=== PATIENT | female | born 1935 | race Caucasian/White ===

== ENCOUNTER 2022-02-22 07:27 | Outpatient (CLI) | payer MEDICARE, BC ==
[2022-02-22 08:04] LABS: Estimated GFR-MDRD - POC Greater than 90
[2022-02-22] MEDS ORDERED: Iopamidol-370 76% 500 ML 1 ML ONE (09:40)
== END 2022-02-22 07:28 | disposition home or self-care (01) ==
LOC: BICCT 07:27
PROVIDERS: ATTEND Physician Assistant Medical
DX: R63.4 Abnormal weight loss (principal); R19.4 Change in bowel habit; K76.89 Other specified diseases of liver; K57.30 Diverticulosis of large intestine without perforation or abscess without bleeding
CPT/HCPCS: 74177; 82565; Q9967

== ENCOUNTER 2022-05-01 13:29 | Outpatient (CLI) | payer MEDICARE, BC | END 2022-05-01 13:30 | disposition home or self-care (01) | LOC: BICCT 13:29 | PROVIDERS: ATTEND Psychiatry & Neurology Neurology | DX: R41.3 Other amnesia (principal); R93.0 Abnormal findings on diagnostic imaging of skull and head, not elsewhere classified | CPT/HCPCS: 70450 ==

== ENCOUNTER 2022-06-13 07:19 | Outpatient (CLI) | payer MEDICARE, BC | END 2022-06-13 07:20 | disposition home or self-care (01) | LOC: NM 07:19 | PROVIDERS: ATTEND Internal Medicine Rheumatology | DX: E21.3 Hyperparathyroidism, unspecified (principal) | CPT/HCPCS: 78072; A9500 ==

== ENCOUNTER 2025-04-16 16:18 | Emergency (ER) | payer MEDICARE, BC ==
[2025-04-16 19:11] LABS: #Basophils 0.06 10x3/uL (0.0-0.2); #Eosinophils 0.09 10x3/uL (0.0-0.7); #Monocytes 0.73 10x3/uL (0.11-0.59); #Neutrophils 4.64 10x3/uL (1.40-6.50); %Basophils 0.8 % (0.0-1.0); %Eosinophils 1.2 % (0.0-10.0); %Lymphocytes 28.1 % (21.0-51.0); %Monocytes 9.5 % (0.0-10.0); %Neutrophils 60.1 % (42.0-75.0); Hematocrit 37.8 % (36.0-47.0); Hemoglobin 13.2 g/dL (12.0-16.0); Mean Corpuscular Hemoglobin 33.2 pg (27.0-31.0); Mean Corpuscular Volume 95.0 fL (78.0-98.0); Platelet Count 195 10x3/uL (130-400); Red Blood Cell (RBC) Count 3.98 mill/uL (4.20-5.40); White Blood Cell (WBC) Count 7.71 10x3/uL (4.8-10.8)
[2025-04-16 19:36] LABS: Troponin I Less than 0.010 ng/mL (< 0.028)
[2025-04-16 19:51] LABS: ALT (SGPT) 12 U/L (Less than 34); AST (SGOT) 25 U/L (11-34); Albumin 4.0 g/dL (3.1-4.5); Alkaline Phosphatase 35 U/L (40-110); Anion Gap 17 mmol/L (10-20); BUN (Urea Nitrogen) 13 mg/dL (9.8-20.1); Bilirubin, Total 0.9 mg/dL (0.3-1.2); Calc. Creatinine Clearance 0 mL/min (70-130); Calcium 9.5 mg/dL (7.8-10.44); Carbon Dioxide 23 mmol/L (23-31); Chloride 101 mmol/L (98-107); Globulin 2.6 g/dL (2.4-3.5); Glucose 93 mg/dL (83-110); Potassium 3.9 mmol/L (3.5-5.1); Sodium 137 mmol/L (136-145)
[2025-04-16 20:11] LABS: CAUTI Indications for Culture Alt mental st,lethar; Glucose, Urine (Dipstick) Normal (Negative); Leukocyte Negative Leu/uL (Negative); Protein, Urine (Dipstick) Negative (Neg-Trace); RBC/HPF 0-3 HPF (0-3); Specific Gravity, Urine 1.007 (1.002-1.036); WBC/HPF 0-3 HPF (0-3)
[2025-04-16 20:17] LABS: Bacteria/HPF 1+ HPF (None Seen); Urine Culture Reflex No No
== END 2025-04-16 21:07 | disposition home or self-care (01) ==
LOC: ERS 16:18
DX: I10 Essential (primary) hypertension (principal); R51.9 Headache, unspecified; I48.91 Unspecified atrial fibrillation; Z55.6 Problems related to health literacy
CPT/HCPCS: 70450; 80053; 81001; 84484; 85025; 93005

== ENCOUNTER 2025-06-04 08:09 | Outpatient (CLI) | payer MEDICARE, BC | END 2025-06-04 08:10 | disposition home or self-care (01) | LOC: ULT 08:09 | PROVIDERS: ATTEND Nurse Practitioner Family | DX: I10 Essential (primary) hypertension (principal) | CPT/HCPCS: 76770; 93976 ==

== ENCOUNTER 2025-09-06 12:22 | Inpatient (IN) | payer MEDICARE, BC ==
[2025-09-06 13:43] LABS: #Basophils 0.08 10x3/uL (0.0-0.2); #Eosinophils 0.17 10x3/uL (0.0-0.7); #Monocytes 0.58 10x3/uL (0.11-0.59); #Neutrophils 3.80 10x3/uL (1.40-6.50); %Basophils 1.5 % (0.0-1.0); %Eosinophils 3.2 % (0.0-10.0); %Lymphocytes 12.4 % (21.0-51.0); %Monocytes 10.9 % (0.0-10.0); %Neutrophils 71.4 % (42.0-75.0); Hematocrit 31.2 % (36.0-47.0); Hemoglobin 10.4 g/dL (12.0-16.0); Mean Corpuscular Hemoglobin 31.7 pg (27.0-31.0); Mean Corpuscular Volume 95.1 fL (78.0-98.0); Platelet Count 290 10x3/uL (130-400); Red Blood Cell (RBC) Count 3.28 mill/uL (4.20-5.40); White Blood Cell (WBC) Count 5.32 10x3/uL (4.8-10.8)
[2025-09-06 14:04] LABS: ALT (SGPT) 20 U/L (Less than 34); AST (SGOT) 24 U/L (11-34); Albumin 2.9 g/dL (3.1-4.5); Alkaline Phosphatase 42 U/L (40-110); Anion Gap 15 mmol/L (10-20); BUN (Urea Nitrogen) 7 mg/dL (9.8-20.1); Bilirubin, Total 0.7 mg/dL (0.3-1.2); Calc. Creatinine Clearance 0 mL/min (70-130); Calcium 8.5 mg/dL (7.8-10.44); Carbon Dioxide 25 mmol/L (23-31); Chloride 94 mmol/L (98-107); Globulin 2.2 g/dL (2.4-3.5); Glucose 99 mg/dL (83-110); Potassium 3.9 mmol/L (3.5-5.1); Sodium 130 mmol/L (136-145)
[2025-09-06] MEDS ORDERED: Furosemide 40 MG (4 mL) VIAL ONE (14:49)
[2025-09-06] MEDS ORDERED: Ondansetron PF 4 MG/2 ML Vial IVP PRN (15:27)
[2025-09-06] MEDS ORDERED: Electrolyte Replacement Protocol 1 EACH FS SCH (15:30)
[2025-09-06] MEDS ORDERED: Magnesium Sulfate In Water 4 GM in Premix 1 BAG IVPB PRN (15:45)
[2025-09-06] MEDS ORDERED: Potassium Chloride 20 MEQ in Premix 1 BAG IVPB PRN (15:45)
[2025-09-06] MEDS ORDERED: PHOS-NAK 1 PKT PACK PO PRN (15:45)
[2025-09-06 16:35] LABS: Bacteria/HPF None Seen HPF (None Seen); CAUTI Indications for Culture Dysuria,urgency,freq; Glucose, Urine (Dipstick) Normal (Negative); Leukocyte Negative Leu/uL (Negative); Protein, Urine (Dipstick) Negative (Neg-Trace); RBC/HPF 0-3 HPF (0-3); Specific Gravity, Urine 1.004 (1.002-1.036); WBC/HPF None Seen HPF (0-3)
[2025-09-06 16:39] LABS: Urine Culture Reflex No No
[2025-09-06 17:29] VITALS: BMI 23.0
[2025-09-06] MEDS: Carvedilol 6.25 MG TAB PO SCH (17:44)
[2025-09-06] MEDS: Furosemide 40 MG (4 mL) VIAL SLOW IVP SCH (17:44)
[2025-09-06] MEDS: Lisinopril 20 MG TAB PO SCH (21:08)
[2025-09-06] MEDS: Melatonin 3 MG TAB PO PRN (21:08)
[2025-09-07 04:31] LABS: #Basophils 0.10 10x3/uL (0.0-0.2); #Eosinophils 0.29 10x3/uL (0.0-0.7); #Monocytes 0.92 10x3/uL (0.11-0.59); #Neutrophils 3.30 10x3/uL (1.40-6.50); %Basophils 1.8 % (0.0-1.0); %Eosinophils 5.4 % (0.0-10.0); %Lymphocytes 14.8 % (21.0-51.0); %Monocytes 17.0 % (0.0-10.0); %Neutrophils 60.8 % (42.0-75.0); Hematocrit 29.4 % (36.0-47.0); Hemoglobin 9.9 g/dL (12.0-16.0); Mean Corpuscular Hemoglobin 31.9 pg (27.0-31.0); Mean Corpuscular Volume 94.8 fL (78.0-98.0); Platelet Count 290 10x3/uL (130-400); Red Blood Cell (RBC) Count 3.10 mill/uL (4.20-5.40); White Blood Cell (WBC) Count 5.42 10x3/uL (4.8-10.8)
[2025-09-07 04:52] LABS: Iron 58 ug/dL (50-170); Iron Binding Capacity, Total 179 mcg/dL (265-497)
[2025-09-07 04:53] LABS: ALT (SGPT) 17 U/L (Less than 34); AST (SGOT) 30 U/L (11-34); Albumin 2.6 g/dL (3.1-4.5); Alkaline Phosphatase 37 U/L (40-110); Anion Gap 9 mmol/L (10-20); BUN (Urea Nitrogen) 8 mg/dL (9.8-20.1); Bilirubin, Total 0.6 mg/dL (0.3-1.2); Calc. Creatinine Clearance 54 mL/min (70-130); Calcium 8.1 mg/dL (7.8-10.44); Carbon Dioxide 29 mmol/L (23-31); Chloride 96 mmol/L (98-107); Globulin 2.4 g/dL (2.4-3.5); Glucose 87 mg/dL (83-110); Iron 58 ug/dL (50-170); Iron Binding Capacity, Total 204 mcg/dL (265-497); Magnesium 1.7 mg/dL (1.6-2.6); Potassium 3.0 mmol/L (3.5-5.1); Sodium 131 mmol/L (136-145)
[2025-09-07 05:03] LABS: Ferritin 129.54 ng/mL (10-291)
[2025-09-07] MEDS: Furosemide 40 MG (4 mL) VIAL SLOW IVP SCH (06:07)
[2025-09-07] MEDS: Pantoprazole 40 MG DR.TAB PO SCH (09:43)
[2025-09-07 14:49] LABS: Potassium 4.1 mmol/L (3.5-5.1)
[2025-09-08 04:00] LABS: #Basophils 0.14 10x3/uL (0.0-0.2); #Eosinophils 0.29 10x3/uL (0.0-0.7); #Monocytes 0.91 10x3/uL (0.11-0.59); #Neutrophils 4.64 10x3/uL (1.40-6.50); %Basophils 2.1 % (0.0-1.0); %Eosinophils 4.3 % (0.0-10.0); %Lymphocytes 10.2 % (21.0-51.0); %Monocytes 13.6 % (0.0-10.0); %Neutrophils 69.5 % (42.0-75.0); Hematocrit 31.8 % (36.0-47.0); Hemoglobin 10.7 g/dL (12.0-16.0); Mean Corpuscular Hemoglobin 31.8 pg (27.0-31.0); Mean Corpuscular Volume 94.4 fL (78.0-98.0); Platelet Count 315 10x3/uL (130-400); Red Blood Cell (RBC) Count 3.37 mill/uL (4.20-5.40); White Blood Cell (WBC) Count 6.68 10x3/uL (4.8-10.8)
[2025-09-08 04:11] LABS: Anion Gap 12 mmol/L (10-20); BUN (Urea Nitrogen) 12 mg/dL (9.8-20.1); Calc. Creatinine Clearance 42 mL/min (70-130); Calcium 8.3 mg/dL (7.8-10.44); Carbon Dioxide 28 mmol/L (23-31); Chloride 97 mmol/L (98-107); Glucose 114 mg/dL (83-110); Magnesium 1.8 mg/dL (1.6-2.6); Potassium 3.4 mmol/L (3.5-5.1); Sodium 134 mmol/L (136-145)
[2025-09-08 04:34] LABS: Free T4 (Free Thyroxine) 1.27 ng/dL (0.70-1.48)
[2025-09-08] MEDS: FLU (Fluad Triv) 25-26 (65UP)PF 45 MCG/0.5 ML Syringe IM ONE (09:16)
[2025-09-08] MEDS: PNEUMOC 20-VAL CONJ-DIP CRM/PF 0.5 ML SYRINGE IM ONE (09:17)
[2025-09-08] MEDS: Senokot S 8.6-50 MG TAB PO PRN (14:51)
[2025-09-08 16:05] LABS: Potassium 3.5 mmol/L (3.5-5.1)
[2025-09-08] MEDS: Melatonin 3 MG TAB PO SCH (20:23)
[2025-09-09 04:02] LABS: #Basophils 0.14 10x3/uL (0.0-0.2); #Eosinophils 0.43 10x3/uL (0.0-0.7); #Monocytes 1.02 10x3/uL (0.11-0.59); #Neutrophils 5.12 10x3/uL (1.40-6.50); %Basophils 1.8 % (0.0-1.0); %Eosinophils 5.6 % (0.0-10.0); %Lymphocytes 12.2 % (21.0-51.0); %Monocytes 13.3 % (0.0-10.0); %Neutrophils 66.7 % (42.0-75.0); Hematocrit 31.2 % (36.0-47.0); Hemoglobin 10.4 g/dL (12.0-16.0); Mean Corpuscular Hemoglobin 31.9 pg (27.0-31.0); Mean Corpuscular Volume 95.7 fL (78.0-98.0); Platelet Count 301 10x3/uL (130-400); Red Blood Cell (RBC) Count 3.26 mill/uL (4.20-5.40); White Blood Cell (WBC) Count 7.68 10x3/uL (4.8-10.8)
[2025-09-09 04:12] LABS: Anion Gap 11 mmol/L (10-20); BUN (Urea Nitrogen) 12 mg/dL (9.8-20.1); Calc. Creatinine Clearance 48 mL/min (70-130); Calcium 8.5 mg/dL (7.8-10.44); Carbon Dioxide 28 mmol/L (23-31); Chloride 95 mmol/L (98-107); Glucose 106 mg/dL (83-110); Potassium 3.5 mmol/L (3.5-5.1); Sodium 130 mmol/L (136-145)
[2025-09-09] MEDS: Furosemide 20 MG TAB PO SCH (15:59)
[2025-09-10 04:31] LABS: #Basophils 0.14 10x3/uL (0.0-0.2); #Eosinophils 0.43 10x3/uL (0.0-0.7); #Monocytes 0.89 10x3/uL (0.11-0.59); #Neutrophils 4.85 10x3/uL (1.40-6.50); %Basophils 1.9 % (0.0-1.0); %Eosinophils 5.9 % (0.0-10.0); %Lymphocytes 13.2 % (21.0-51.0); %Monocytes 12.2 % (0.0-10.0); %Neutrophils 66.4 % (42.0-75.0); Hematocrit 31.6 % (36.0-47.0); Hemoglobin 11.0 g/dL (12.0-16.0); Mean Corpuscular Hemoglobin 32.4 pg (27.0-31.0); Mean Corpuscular Volume 92.9 fL (78.0-98.0); Platelet Count 276 10x3/uL (130-400); Red Blood Cell (RBC) Count 3.40 mill/uL (4.20-5.40); White Blood Cell (WBC) Count 7.30 10x3/uL (4.8-10.8)
[2025-09-10 04:53] LABS: Anion Gap 12 mmol/L (10-20); BUN (Urea Nitrogen) 25 mg/dL (9.8-20.1); Calc. Creatinine Clearance 36 mL/min (70-130); Calcium 8.5 mg/dL (7.8-10.44); Carbon Dioxide 28 mmol/L (23-31); Chloride 96 mmol/L (98-107); Glucose 101 mg/dL (83-110); Potassium 3.1 mmol/L (3.5-5.1); Sodium 133 mmol/L (136-145)
[2025-09-10] MEDS: Furosemide 40 MG TAB PO SCH (06:34)
[2025-09-10] MEDS: Senokot S 8.6-50 MG TAB PO SCH (20:55)
[2025-09-11 04:58] LABS: #Basophils 0.13 10x3/uL (0.0-0.2); #Eosinophils 0.59 10x3/uL (0.0-0.7); #Monocytes 0.95 10x3/uL (0.11-0.59); #Neutrophils 4.07 10x3/uL (1.40-6.50); %Basophils 2.0 % (0.0-1.0); %Eosinophils 9.0 % (0.0-10.0); %Lymphocytes 11.6 % (21.0-51.0); %Monocytes 14.5 % (0.0-10.0); %Neutrophils 62.4 % (42.0-75.0); Hematocrit 32.0 % (36.0-47.0); Hemoglobin 10.8 g/dL (12.0-16.0); Mean Corpuscular Hemoglobin 31.8 pg (27.0-31.0); Mean Corpuscular Volume 94.1 fL (78.0-98.0); Platelet Count 278 10x3/uL (130-400); Red Blood Cell (RBC) Count 3.40 mill/uL (4.20-5.40); White Blood Cell (WBC) Count 6.53 10x3/uL (4.8-10.8)
[2025-09-11 05:24] LABS: Anion Gap 11 mmol/L (10-20); BUN (Urea Nitrogen) 18 mg/dL (9.8-20.1); Calc. Creatinine Clearance 46 mL/min (70-130); Calcium 8.3 mg/dL (7.8-10.44); Carbon Dioxide 27 mmol/L (23-31); Chloride 94 mmol/L (98-107); Glucose 105 mg/dL (83-110); Potassium 3.2 mmol/L (3.5-5.1); Sodium 129 mmol/L (136-145)
[2025-09-12 04:15] LABS: #Basophils 0.13 10x3/uL (0.0-0.2); #Eosinophils 0.42 10x3/uL (0.0-0.7); #Monocytes 0.94 10x3/uL (0.11-0.59); #Neutrophils 3.96 10x3/uL (1.40-6.50); %Basophils 2.1 % (0.0-1.0); %Eosinophils 6.8 % (0.0-10.0); %Lymphocytes 11.3 % (21.0-51.0); %Monocytes 15.2 % (0.0-10.0); %Neutrophils 64.3 % (42.0-75.0); Hematocrit 29.2 % (36.0-47.0); Hemoglobin 9.7 g/dL (12.0-16.0); Mean Corpuscular Hemoglobin 32.1 pg (27.0-31.0); Mean Corpuscular Volume 96.7 fL (78.0-98.0); Platelet Count 261 10x3/uL (130-400); Red Blood Cell (RBC) Count 3.02 mill/uL (4.20-5.40); White Blood Cell (WBC) Count 6.17 10x3/uL (4.8-10.8)
[2025-09-12 04:29] LABS: Anion Gap 15 mmol/L (10-20); BUN (Urea Nitrogen) 19 mg/dL (9.8-20.1); Calc. Creatinine Clearance 46 mL/min (70-130); Calcium 8.2 mg/dL (7.8-10.44); Carbon Dioxide 24 mmol/L (23-31); Chloride 95 mmol/L (98-107); Glucose 98 mg/dL (83-110); Potassium 3.8 mmol/L (3.5-5.1); Sodium 130 mmol/L (136-145)
[2025-09-13] MEDS ORDERED: Iopamidol-370 76% 500 ML MDV (1 ML CHARGE) ONE (10:01)
[2025-09-13] MEDS: Acetaminophen 325 MG TAB PO PRN (11:18)
[2025-09-13] MEDS: Calcium Carbonate 500 MG ChewTAB PO PRN (18:23)
[2025-09-13] MEDS: Simethicone Chewable 80 MG TAB PO PRN (21:56)
[2025-09-13] MEDS: Transdermal Patch Removal TOP SCH (23:28)
[2025-09-14 04:21] LABS: #Basophils 0.15 10x3/uL (0.0-0.2); #Eosinophils 0.61 10x3/uL (0.0-0.7); #Monocytes 0.86 10x3/uL (0.11-0.59); #Neutrophils 4.56 10x3/uL (1.40-6.50); %Basophils 2.2 % (0.0-1.0); %Eosinophils 8.9 % (0.0-10.0); %Lymphocytes 9.5 % (21.0-51.0); %Monocytes 12.5 % (0.0-10.0); %Neutrophils 66.5 % (42.0-75.0); Hematocrit 32.0 % (36.0-47.0); Hemoglobin 10.6 g/dL (12.0-16.0); Mean Corpuscular Hemoglobin 31.9 pg (27.0-31.0); Mean Corpuscular Volume 96.4 fL (78.0-98.0); Platelet Count 257 10x3/uL (130-400); Red Blood Cell (RBC) Count 3.32 mill/uL (4.20-5.40); White Blood Cell (WBC) Count 6.86 10x3/uL (4.8-10.8)
[2025-09-14 04:47] LABS: Anion Gap 12 mmol/L (10-20); BUN (Urea Nitrogen) 24 mg/dL (9.8-20.1); Calc. Creatinine Clearance 40 mL/min (70-130); Calcium 9.0 mg/dL (7.8-10.44); Carbon Dioxide 26 mmol/L (23-31); Chloride 98 mmol/L (98-107); Glucose 100 mg/dL (83-110); Magnesium 1.9 mg/dL (1.6-2.6); Potassium 3.3 mmol/L (3.5-5.1); Sodium 133 mmol/L (136-145)
[2025-09-14] MEDS: Potassium Bicarbonate/Cit Ac 20 MEQ TAB PER TUBE PRN (10:52)
[2025-09-14 15:51] VITALS: BP 138/65; TEMP 97.5
== END 2025-09-14 18:15 | DRG 291 ==
LOC: SUATTDRO 12:22 → ERS 12:22 → ERHOLD 15:26 → PCU 16:56 → OBSVTOIN 09-07 13:20 → 2NO 09-14 12:45
PROVIDERS: ADMIT Internal Medicine; ATTEND Family Medicine
DX: I11.0 Hypertensive heart disease with heart failure (principal); I50.33 Acute on chronic diastolic (congestive) heart failure; E87.1 Hypo-osmolality and hyponatremia; I48.20 Chronic atrial fibrillation, unspecified; K56.7 Ileus, unspecified; Z66 Do not resuscitate; F03.90 Unspecified dementia, unspecified severity, without behavioral disturbance, psychotic disturbance, mood disturbance, and anxiety; E03.9 Hypothyroidism, unspecified; K21.9 Gastro-esophageal reflux disease without esophagitis; E87.8 Other disorders of electrolyte and fluid balance, not elsewhere classified; D64.9 Anemia, unspecified; Z96.653 Presence of artificial knee joint, bilateral; Z98.42 Cataract extraction status, left eye; Z98.41 Cataract extraction status, right eye; Z90.49 Acquired absence of other specified parts of digestive tract; Z90.710 Acquired absence of both cervix and uterus; Z90.89 Acquired absence of other organs; Z90.12 Acquired absence of left breast and nipple; Z98.890 Other specified postprocedural states; Z88.1 Allergy status to other antibiotic agents; Z88.0 Allergy status to penicillin; Z88.8 Allergy status to other drugs, medicaments and biological substances; Z79.899 Other long term (current) drug therapy; Z79.890 Hormone replacement therapy; Z88.5 Allergy status to narcotic agent; Z88.2 Allergy status to sulfonamides; K59.09 Other constipation; M06.9 Rheumatoid arthritis, unspecified; Z85.3 Personal history of malignant neoplasm of breast; Z79.01 Long term (current) use of anticoagulants; R39.15 Urgency of urination
CPT/HCPCS: 36415; 71045; 74018; 74177; 80048; 80053; 81001; 82728; 83540; 83550; 83735; 83880; 84439; 84443; 84481; 84484; 85025; 93005; 93010; 93306; 93798; 96374; J1940; J2272; J7030; Q9967